=== PATIENT | male | born 1985 | race Caucasian/White ===

== ENCOUNTER 2024-06-17 07:16 | Emergency (ER) | payer SELFPAY ==
[2024-06-17 07:24] VITALS: BP 125/74
--- NOTE | 2024-06-17 07:46 | ED.GENMED ---
History of Present Illness
General
Chief Complaint: Insect Sting
Source: patient
Time Seen by Provider: 06/17/24 07:27
History of Present Illness
History of Present Illness:
39-year-old male with no significant past medical history presenting to the emergency department for evaluation after he noticed a tick on the right nipple upon awakening this morning. Patient was able to remove the tick however the head of the
tick remained embedded within the right nipple. Patient believes that the tick bit him yesterday but he is overall not certain. He has no concerns at this time.
Past History
Past History
ED Past Medical History: None
ED Past Surgical History: None
Social History
Tobacco: Non-smoker
Alcohol: None
Drug: None
Personal:
Living: with family
Review of Systems
Review of Systems
All Other Systems: ROS reviewed and negative except as documented in HPI and ROS
Phy Exam
Physical Exam
Physical Exam:
GENERAL: Alert , in no apparent distress
EYE: conjunctiva clear
Head: Normocephalic atraumatic
NECK: Supple,
ENT: mmm.
LUNGS: no acute respiratory distress
NEUROLOGICAL: Alert and oriented
SKIN: Warm and dry, small less than 1 mm what appears to be tick head within the right nipple, superficial, no active bleeding
MUSCULOSKELETAL: well perfused.
PSYCH: Normal and appropriate interaction.
Scores
Heart Failure Risk
Heart Failure Risk Score: Not Applicable
Heart Score for Chest Pain Patients
STEMI patient?: Not applicable
Withdrawal Assessment of Alcohol
Withdrawal Assessment Completed?: Not applicable
Course
Orders/Labs/Results
Orders:
Orders
06/17/24 07:46
Doxycycline [Vibramycin] 200 mg PO NOW STA
Vital Signs
Initial and Last Documented VS:
Initial Vital Signs
Temp Pulse Resp BP Pulse Ox
98.1 F 65 16 125/74 97
06/17/24 07:24 06/17/24 07:24 06/17/24 07:24 06/17/24 07:24 06/17/24 07:24
Last Documented Vital Signs
Temp Pulse Resp BP Pulse Ox
98.1 F 65 16 125/74 97
06/17/24 07:24 06/17/24 07:24 06/17/24 07:24 06/17/24 07:24 06/17/24 07:24
Procedures
Foreign Body Removal-Skin
Wound explored and foreign body removed?: Yes
Anesthesia: 1% lidocaine
Foreign body removed using: forceps and incision
Foreign body removed: partially (Wound was explored and I did not see any remaining evidence for the tick body however did not feel comfortable cutting into the further due to possible wound healing complication)
MDM/Problems Addressed
MDM/Problems Addressed:
39-year-old male presenting to the ER for evaluation after he states tick was on the right breast earlier this morning. Removed majority of the body however the tick had remained in place. Carefully used forceps, scissors and an 11 blade to lift
the tick body to the surface and was able to remove majority of the head. There was some slight oozing from the site so it was difficult to ascertain as to whether the entirety of the tick had had been removed. Will cover with a one-time 200 mg
dose of doxycycline. Patient states that he is going to mail the tick away for Lyme testing. Patient aware of return precautions. Stable for discharge home.
*Pulse Oximetry
Patient hypoxic: no
*Critical Care Note
Total Time (30-74mins, 75-104mins- exclusive of procedures): Not Applicable
ED Attending Note
-
Portions of this chart may have been created with voice recognition software.� Occasional wrong word or��sound alike� substitutions may have occurred due to the inherent limitations of voice recognition software.
Discharge Plan
Departure
Patient Disposition: Home (Routine Discharge)
Date of Disposition: 06/17/24
Time of Disposition: 07:46
Patient with high blood pressure during this ER visit?: No
Discharge Problem:
Tick bite of right male breast
Instructions: Insect Bites and Stings ED
Interventions
Interventions:
*Risk Screen - Suicide Last Done: 06/17/24 07:24
*General Assessment Last Done: 06/17/24 07:24
*Neglect/Abuse Screening Last Done: 06/17/24 07:24
ED- Fall Risk Assessment Last Done: 06/17/24 07:55
*ED COVID-19 Vaccine History Last Done: 06/17/24 07:55
*Nursing Disposition Last Done: 06/17/24 07:55
ED-Skin Assessment Last Done: 06/17/24 07:55
ED- Pulmonary Assessment Last Done: 06/17/24 07:55
Discharge Date and Time
Discharge Date/Time: 06/17/24 07:55
Print Language: [id number]
[2024-06-17] MEDS: VIBRAMYCIN 200 MG PO (07:55)
== END 2024-06-17 07:55 | disposition home or self-care (01) ==
LOC: EMR 07:16
PROVIDERS: EMERGENCY PHYSICIAN Student in an Organized Health Care Education/Training Program
DX: S20.151A Superficial foreign body of breast, right breast, initial encounter (principal); W57.XXXA Bitten or stung by nonvenomous insect and other nonvenomous arthropods, initial encounter
CPT/HCPCS: 10120; 99283